=== PATIENT | female | born 1990 | race Caucasian/White ===

== ENCOUNTER 2023-05-16 12:15 | Emergency (ER) | payer OTHER, SELFPAY ==
[2023-05-16 12:31] VITALS: BP 132/79; PULSE 94; RESP 18; TEMP 36.3; O2SAT 99; BMI 29.2
--- NOTE | 2023-05-16 12:53 | CRLHL7_ITS ---
For Patients: As a result of the Century Cures Act, medical imaging exams and procedure reports are released immediately into your electronic medical record. You may view this report before your referring provider. If you have questions, please contact your health care provider. INDICATION: Left flank pain, history kidney stones. TECHNIQUE: CT abdomen and pelvis without contrast. Coronal and sagittal reformats were obtained on an independent workstation. COMPARISON: None. FINDINGS: Lower chest: No suspicious pulmonary nodule or consolidation. No basilar effusion. Heart base unremarkable. Evaluation of the visceral organs is limited due to the lack of intravenous contrast. Liver: Unremarkable. Gallbladder and bile ducts: No stones or inflammation. No biliary dilatation. Pancreas: Unremarkable. No mass or inflammation. Spleen: Normal in size. No masses. Adrenal glands: Normal in size. No nodules. Kidneys: No hydronephrosis bilaterally. Nonobstructive nephrolith in the left lower pole measuring 6 mm. No perinephric fat stranding. GI tract: Stomach is decompressed, limiting evaluation, but appears grossly normal. Small and large bowel is normal in caliber, without obstruction. Normal appendix (/67). A few scattered sigmoid diverticuli, without diverticulitis. No pneumatosis, pneumoperitoneum or portal venous gas. Vasculature: Unremarkable. Lymph nodes: No lymphadenopathy. Abdominal wall/Omentum/Peritoneum: Unremarkable. Bladder: Decompressed, limiting evaluation. No gross abnormality. No stones. Pelvis: Pessary. Uterus and bilateral ovaries are otherwise unremarkable. Bones: Unremarkable for age. IMPRESSION: 1. No hydronephrosis or obstructive nephrolithiasis bilaterally. Nonobstructive nephrolith in the left lower pole measuring 6 mm. 2. A few scattered sigmoid diverticuli, without diverticulitis. Please note that all CT scans at this facility use dose modulation, iterative reconstruction, and/or weight-based dosing when appropriate to reduce radiation dose to as low as reasonably achievable. Dictated by Mayank Carson MD @ 05/16/2023 2:27:38 PM (Electronically Signed)
[2023-05-16 13:31] LABS: Ur HCG Qualitative* Negative (Negative)
[2023-05-16 13:34] LABS: Color Urine Yellow (Yellow)
[2023-05-16 13:35] LABS: Appearance Urine Clear (Clear); Bilirubin Urine Negative (Negative); Blood Urine Trace-intact (Negative); Glucose Urine Negative (Negative); Ketones Urine Negative (Negative); Leukocyte Esterase Urine Negative (Negative); Nitrite Urine Positive (Negative); Protein Urine Negative (Negative); Urobilinogen Urine 0.2 (0.2-1.0)
[2023-05-16 13:36] LABS: Bacteria Urine Many; Squamous Epithelial Cell Urine Few (None-Few)
--- NOTE | 2023-05-16 14:40 | ED_ITS ---
HPI - General Adult General Chief complaint: Flank Pain Stated complaint: kidney stone, left flank Time Seen by Provider: 05/16/23 12:35 History of Present Illness HPI narrative: This 32-year-old female comes in reporting pain in the left flank region. She wonders if she might have a kidney stone. She states the pain is been present over the past couple days. She has had some nausea but no vomiting. She also did describe some increased urinary frequency. She has not had any fevers. Related Data Home Medications Medication Instructions Recorded Confirmed sertraline 50 mg tablet 75 mg PO QDAY 05/16/23 05/16/23 Previous Rx's Medication Instructions Recorded ketorolac 10 mg tablet 10 mg PO Q8H 5 days #15 tabs 05/16/23 Allergies Allergy/AdvReac Type Severity Reaction Status Date / Time No Known Drug Allergies Allergy Verified 05/16/23 12:34 Review of Systems Status of ROS: Reports: 10 or more systems reviewed and unremarkable except as noted in History and below Narrative: Constitutional: No fevers, no weight gain or loss. Eyes: No discharge. No vision changes. HENT: No congestion, no sore throat, no ear pain. Cardiovascular: No chest pain, no palpitations. Respiratory: No shortness of breath, no wheezes, no cough. Gastrointestinal: No abdominal pain, no vomiting, no diarrhea. Genitourinary: No dysuria, no hematuria. Musculoskeletal: Normal range of motion. Skin: No rashes, no pruritis. Neurological: No dizziness, weakness, sensory change, speech change. Endo/Heme/Allergies: No bruising or bleeding. No polydipsia. Pysch: no suicidality, no anxiety, no insomnia. All other systems reviewed and are negative. PFSH PFSH Social History Smoking Status: Never smoker Do you use any of these nicotine containing products: None Second hand tobacco smoke exposure: No How often do you have a drink containing alcohol: never How often do you have six or more drinks on one occasion: Never AUDIT-C Alcohol total score: 0 service: No Exam Narrative: Exam Narrative: Constitutional: Well-developed, well-nourished, no acute distress. HEENT: Normocephalic, atraumatic. Neck: Normal range of motion. Nontender. Supple. Heart: Regular. No murmurs. Normal rate. Intact distal pulses. Lungs: Clear to auscultation. No chest discomfort. No wheezes, rhonchi, or rales. Abdomen: Normal bowel sounds. Nontender. No rebound tenderness. Genitalia: Deferred. Back: No midline tenderness. Normal range of motion. Pain is more present in the left lower back. No pain when percussing over the left kidney area. She reports that the pain sometimes radiates into her left buttock. Extremities: Normal range of motion. No injury. Skin: Intact. No rash. Warm. No erythema or pallor. Neurologic: No altered sensation. No weakness. Alert and oriented. Psychiatric: No suicidality. No anxiety or depression. No insomnia. Nursing notes and vitals signs are reviewed. Const: Vital Signs, click to edit/add: Vital Signs - 24 hr 05/16/23 12:31 Temperature 97.3 F L Pulse Rate [Right Pulse Oximeter] 94 Respiratory Rate 18 Blood Pressure [Ri ght Upper Arm] 132/79 Pulse Oximetry 99 Oxygen Delivery Me thod Room Air Course Vital Signs Vital signs: Initial Vital Signs Temperature 97.3 F L 05/16/23 12:31 Temperature Source Temporal Artery Scan 05/16/23 12:31 Pulse Rate 94 05/16/23 12:31 Pulse Rhythm Regular 05/16/23 12:31 Pulse Strength 3+ Normal 05/16/23 12:31 Respiratory Rate 18 05/16/23 12:31 Blood Pressure 132/79 05/16/23 12:31 Blood Pressure Mean 96 05/16/23 12:31 Blood Pressure Position Sitting 05/16/23 12:31 Pulse Oximetry 99 05/16/23 12:31 Oxygen Delivery Method Room Air 05/16/23 12:31 Vital Signs Temperature 97.3 F L 05/16/23 12:31 Pulse Rate 94 05/16/23 12:31 Respiratory Rate 18 05/16/23 12:31 Blood Pressure 132/79 05/16/23 12:31 Pulse Oximetry 99 05/16/23 12:31 Oxygen Delivery Method Room Air 05/16/23 12:31 Temperature 97.3 F L 05/16/23 12:31 Pulse Rate 94 05/16/23 12:31 Respiratory Rate 18 05/16/23 12:31 Blood Pressure 132/79 05/16/23 12:31 Pulse Oximetry 99 05/16/23 12:31 Oxygen Delivery Method Room Air 05/16/23 12:31 Medical Decision Making MDM Narrative Medical decision making narrative: This patient comes in reporting moderate pain in her left lower back. She does have history of kidney stones so a CT scan of the abdomen and pelvis is acquired. There is no sign of obstructive uropathy but there is a 6 mm nonobstructive stone in the left kidney. Additionally urinalysis shows no sign of infection or microscopic hematuria. It seems more likely that this patient's pain is musculoskeletal or perhaps some nerve impingement. Her vital signs are in normal range. She is okay to return home. She did receive a prescription for Toradol. Lab Data Labs: Lab Results 05/16/23 05/16/23 05/16/23 Range/Units Unknown Unknown Unknown Urine Color Cancelled Yellow Urine Appearance Cancelled Clear Urine pH Cancelled Ur Specific [place] Urine Protein Urine Glucose (UA) Urine Ketones Urine Blood Urine Nitrite Urine Bilirubin Urine Urobilinogen Ur Leukocyte Esterase Urine RBC (0-2) Urine WBC (0-5) Ur Squamous Epith Cells (None-Few) Urine Bacteria (None) Urine HCG, Qual (Negative) 05/16/23 05/16/23 05/16/23 Range/Units Unknown Unknown Unknown Urine Color Urine Appearance Urine pH 7.0 Ur Specific [place] Cancelled 1.020 Urine Protein Cancelled Negative Urine Glucose (UA) Cancelled Urine Ketones Urine Blood Urine Nitrite Urine Bilirubin Urine Urobilinogen Ur Leukocyte Esterase Urine RBC (0-2) Urine WBC (0-5) Ur Squamous Epith Cells (None-Few) Urine Bacteria (None) Urine HCG, Qual (Negative) 05/16/23 05/16/23 05/16/23 Range/Units Unknown Unknown Unknown Urine Color Urine Appearance Urine pH Ur Specific [place] Urine Protein Urine Glucose (UA) Negative Urine Ketones Cancelled Negative Urine Blood Cancelled Trace-intact A Urine Nitrite Cancelled Urine Bilirubin Urine Urobilinogen Ur Leukocyte Esterase Urine RBC (0-2) Urine WBC (0-5) Ur Squamous Epith Cells (None-Few) Urine Bacteria (None) Urine HCG, Qual (Negative) 05/16/23 05/16/23 05/16/23 Range/Units Unknown Unknown Unknown Urine Color Urine Appearance Urine pH Ur Specific [place] Urine Protein Urine Glucose (UA) Urine Ketones Urine Blood Urine Nitrite Positive A Urine Bilirubin Cancelled Negative Urine Urobilinogen Cancelled 0.2 Ur Leukocyte Esterase Cancelled Urine RBC (0-2) Urine WBC (0-5) Ur Squamous Epith Cells (None-Few) Urine Bacteria (None) Urine HCG, Qual (Negative) 05/16/23 Range/Units Unknown Urine Color Urine Appearance Urine pH Ur Specific [place] Urine Protein Urine Glucose (UA) Urine Ketones Urine Blood Urine Nitrite Urine Bilirubin Urine Urobilinogen Ur Leukocyte Esterase Negative Urine RBC 2-5 A (0-2) Urine WBC 2-5 (0-5) Ur Squamous Epith Cells Few (None-Few) Urine Bacteria Many A (None) Urine HCG, Qual Negative (Negative) Imaging Data CT scan - abdomen: Radiologist's impression: 1. No hydronephrosis or obstructive nephrolithiasis bilaterally. Nonobstructive nephrolith in the left lower pole measuring 6 mm. 2. A few scattered sigmoid diverticuli, without diverticulitis. Discharge Plan Discharge Clinical Impression: Back pain Patient Disposition: Home, Self-Care Condition: Unchanged Additional Instructions: Take medication as needed and directed. Follow up with MD or return if worsening. Prescriptions: New ketorolac 10 mg tablet 10 mg PO Q8H 5 Days Qty: 15 0RF No Action sertraline 50 mg tablet 75 mg PO QDAY Follow Up/Referrals: Andria Mims DO [Primary Care Provider] - Stand Alone Forms: [facility] Info Instructions
--- NOTE | 2023-05-19 11:17 | ED.NURSE ---
Patient called stating her antibiotic wasn't [facility]. Per callback notes, message was left for NEMESIO Oliva last evening with Keflex 500mg PO TID x7 days. Called and spoke with Luz Elena and pharmacist with prescription information. No further questions or concerns.
== END 2023-05-16 14:55 | disposition home or self-care (01) ==
PROVIDERS: Emergency Provider Emergency Medicine Emergency Medical Services; PCP Family Medicine
DX: M54.50 Low back pain, unspecified (principal)
CPT/HCPCS: 74176; 81001; 81003; 81025; 87086; 87186; 99283; 99284